=== PATIENT | female | born 1975 | race Hispanic/Latino ===

== ENCOUNTER 2025-04-10 22:28 | Emergency (ER) | payer OTHER ==
[~2025-04-10] VITALS: Ht 162.6 cm; Wt 92.5 kg
--- NOTE | 2025-04-10 23:42 | HMCIMG ---
EXAM: CR Right Foot, 3 views. CLINICAL HISTORY: Rule out foreign body in the heel. COMPARISON: None provided. FINDINGS: No acute fracture or aggressive appearing osseous lesion. Questionable old healed fractures around the 4th and 5th metatarsal neck regions. Hypertrophic changes around the medial aspect of the fifth metatarsal neck, measuring about 5 x 6 mm, the differentials could be exostosis or hypertrophic callus. 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 The soft tissues are unremarkable. No radiopaque foreign body is evident. IMPRESSION: No radiopaque foreign body is evident. No acute fracture. Questionable old healed fractures around the 4th and 5th metatarsal neck regions. Hypertrophic changes around the medial aspect of the fifth metatarsal neck, measuring about 5 x 6 mm, the differentials could be exostosis or hypertrophic callus. /[place]
--- NOTE | 2025-04-10 23:49 | ERN ---
General Chief Complaint: FOOT INJURY/PAIN Stated Complaint: C/O SPLINTER IN RT HEEL Time Seen by MD: 22:33 Time Seen by Midlevel: 22:33 Source: patient History of Present Illness Initial Comments The patient is a 49-year-old female presenting to the emergency department with pain to her right heel. Patient states she stepped on a splinter earlier today. She was able to remove the splinter but still had localize pain. She saw her primary care doctor who started her on antibiotics and recommended she report to the ER for an x-ray to rule out a foreign body. The patient has pain with ambulation but denies any other symptoms. Additionally, the patient states she twisted her ankle several days ago and still feels soreness on the ankle. Allergies: Coded Allergies: Penicillins (Unverified Allergy, Unknown, 04/10/25) Past Medical History Past Medical History: No Pertinent History Past Surgical History: None ROS Dictation CONSTITUTIONAL: Negative except for HPI HEAD/FACE: Negative except for HPI EENT: Negative except for HPI RESPIRATORY: Negative except for HPI GASTROINTESTINAL/ABDOMINAL: Negative except for HPI GENITOURINARY: Negative except for HPI MUSCULOSKELETAL: Negative except for HPI INTEGUMENTARY: Negative except for HPI NEUROLOGICAL/PSYCH: Negative except for HPI HEMATOLOGIC/LYMPHATIC: Negative except for HPI All Systems Negative, Except as noted above. 13 point review of systems assessed and all negative except for above. Physical Exam Physical Exam Dictation Vital Signs reviewed General Appearance: Alert, oriented x 3, no acute distress, well developed, nourished. Head and Face: non-traumatic. Eyes: PERRL, pink conjunctivas, eyelid no trauma, anterior chamber with arcus senilis. Ears: Pinnas intact and no signs of trauma or erythema ear canals clear and no discharge TM no erythema Nose: No discharge, no bleeding. Oropharynx: Mouth normal, tongue pink, pharynx clear,no erythema, tonsils no exudates, no abscesses noted, mucous membrane moist Neck: Supple, non-tender, no thyromegaly, no masses, no JVD, no bruits Breast:Deferred Chest:No tenderness, no crepitus, no paradoxical movement, no retractions Lungs:Clear, well-ventilated, symmetric, no rales, no wheezing, no rhonchi, no stridor, good breath sounds bilaterally Heart: Regular rate, regular rhythm, no murmur, no gallops Vascular: no peripheral edema, Abdomen: Soft, positive bowel sounds, nondistended, no guarding, nontender, no rebound, no masses no hepatomegaly, no splenomegaly, no Ortiz's sign, no hernias. Rectal: Deferred Genital: Deferred Neurological: Normal speech, motor function intact, sensory function intact Musculoskeletal: Neck nontender, full range of motion, back nontender, full range of motion, Extremities: nontender, full range of motion Skin: Color pink, dry, no turgor, no rash, no lacerations, no abrasions, no contusions. Lymphatic: Deferred MDM MDM: Differential diagnosis: Retained foreign body, ankle sprain, laceration, abrasion There are no social concerns with this patient. Prescription drug management Prescriptions will include: None Medical management and examination interpretation discussions were had by me with other qualified healthcare professionals as indicated for the patient's care. ED Course Orders Procedure Category Date Status Time Tetanus,Diphtheria PHA 04/10/25 Complete Tox [Adult] (Diphther 23:00 Foot Comp 3+Vws Rt RAD 04/10/25 Taken 22:37 Current Medications Medications (Trade) Dose Ordered Sig/Sen Route PRN Reason Start Time Stop Time Status Last Admin Dose Admin Tetanus/ Diphtheria Toxoids Adsorbed (DiphthERIA-teTANUS TOXOID [ADULT]/ DECAVAC) 0.5 ml ONCE ONCE IM 04/10/25 23:00 04/10/25 23:01 DC 04/10/25 23:07 Vital Signs Date Time Temp Pulse Resp B/P (MAP) Pulse Ox O2 Delivery O2 Flow Rate FiO2 04/10/25 22:44 98.1 98 14 139/89 97 Room Air* 0 21 04/10/25 22:31 98.1 94 20 123/78 97 Room Air [place] [address] [place] [id number] IMAGING REPORT Signed PATIENT: MISTY MONET MR#: [id number] : 1975 SEX: F AGE: 49 LOCATION: [facility] ORDER 37 STATUS: REG ER REPORT#: [id number] SERVICE 36 REASON: r/o fb in heel ORDERING PHYSICIAN: USMAN WELLER PROCEDURE: FT 3VW RT - FOOT COMP 3+VWS RT EXAM: CR Right Foot, 3 views. CLINICAL HISTORY: Rule out foreign body in the heel. COMPARISON: None provided. FINDINGS: No acute fracture or aggressive appearing osseous lesion. Questionable old healed fractures around the 4th and 5th metatarsal neck regions. Hypertrophic changes around the medial aspect of the fifth metatarsal neck, measuring about 5 x 6 mm, the differentials could be exostosis or hypertrophic callus. 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 The soft tissues are unremarkable. No radiopaque foreign body is evident. IMPRESSION: No radiopaque foreign body is evident. No acute fracture. Questionable old healed fractures around the 4th and 5th metatarsal neck regions. Hypertrophic changes around the medial aspect of the fifth metatarsal neck, measuring about 5 x 6 mm, the differentials could be exostosis or hypertrophic callus. /[facility] DICTATED BY: JACEK PALACIO Jr., MD DATE: 04/11/2540 ELECTRONICALLY SIGNED BY: JACEK PALACIO Jr., MD DATE: 04/11/2540 DX & DISP Disposition: Discharge Departure Impression: Primary Impression: Pain of right heel Condition: Stable Additional Instructions: You were seen in the emergency department today for right heel pain after stepping on a splinter. Your x-ray did not show any retained foreign body or fracture. On exam there is mild swelling at the sign with no obvious signs of infection. You received a tetanus booster and you should continue the antibiotics started by your primary care provider. Keep the area clean and dry use ice and elevation for comfort, and you may take Tylenol or Motrin as needed for pain. Follow up with your PCP within one week for re-evaluation. Return to the ER sooner if you develop any new or worsening symptoms. Referrals: NONE (PCP) I have reviewed the case, and I agree with, Diagnosis and Plan I performed the substantive portion of the visit. I have reviewed and personally made and approve the management plan that is documented in the note by myself or the [facility]. I acknowledge for responsibility for the patient's management plan. USMAN WELLER Apr 10, 2025 23:49
[2025-04-11 00:19] VITALS: BP 136/85; PULSE 88; RESP 14; TEMP 98.1; O2SAT 98
== END 2025-04-11 00:29 | disposition home or self-care (01) ==
LOC: EDH 22:28
DX: M79.671 Pain in right foot (principal); Z88.0 Allergy status to penicillin; W22.8XXA Striking against or struck by other objects, initial encounter; Y93.89 Activity, other specified; Y92.89 Other specified places as the place of occurrence of the external cause; Y99.8 Other external cause status
CPT/HCPCS: 73630; 90471; 90714; 99283